=== PATIENT | female | born 1990 | race Caucasian/White ===

== ENCOUNTER 2020-11-17 20:36 | Emergency (ER) | payer OTHER, SELFPAY ==
[2020-11-17 21:00] VITALS: BP 132/75; PULSE 92; RESP 18; TEMP 36.8; O2SAT 96; BMI 45.0
[2020-11-17 22:34] LABS: IDNOW Serial# 08D9AD1C; Strep A Nucleic Acid Positive (Negative)
--- NOTE | 2020-11-17 23:17 | ED_ITS ---
HPI - General Adult General Chief complaint: General Medical Stated complaint: strept? Time Seen by Provider: 11/17/20 23:09 Source: patient Mode of arrival: ambulatory Limitations: no limitations History of Present Illness HPI narrative: patient is a 29-year-old female with no significant past medical history is here complaining of a sore throat. She states she went to her doctor today and was given a prescription for amoxicillin which she started taking but her throat is hurting. I explained she did test positive for strep and what she needs to feel better is to take her antibiotics. She denies any fever shortness of breath, trouble breathing or chest pain Related Data Allergies Allergy/AdvReac Type Severity Reaction Status Date / Time No Known Allergies Allergy Verified 11/17/20 20:59 Review of Systems Review of Systems: Yes all other systems are reviewed and are negative [facility] Past Medical History Medical History HTN (hypertension) Kidney stones Pre-diabetes Surgical History History of lithotripsy Social History Social History Advance Directives: No Advance Directives Information Provided: Yes Patient : No Physical Exam Vital Signs: Vital Signs: Last Vital Signs Temp 98.3 F 11/17/20 21:00 Pulse 92 11/17/20 21:00 Resp 18 11/17/20 21:00 BP 132/75 11/17/20 21:00 Pulse Ox 96 11/17/20 21:00 Body Mass Index 45.0 Const: General: cooperative, healthy appearing, comfortable, no acute distress and well developed Orientation/consciousness: patient oriented x3 Limitations: no limitations HENMT: Head: Yes normal to inspection Face and sinus: Yes normal facial exam Mouth: Normal oral and palatal mucosa present, lip normal, tongue normal, moist mucous membranes, no drooling and no muffled voice Teeth and gingiva: dentition normal and gingiva normal Throat: Yes tonsils normal ( erythematous and slightly enlarged but airway is patent), No peritonsillar mass, Yes posterior oropharynx abnormal ( Erythematous), No uvula laterally displaced, No uvular edema and No cobblestoning Eyes: General: appearance normal, both eyes and all related structures Neck: Neck: Yes normal visual inspection and Yes full ROM Resp: Effort & Inspection: normal respiratory effort and able to speak in complete sentences Cardio: Rate: regular rate Skin: General skin exam: no rashes or lesions noted Neuro: General: patient oriented x3 Extrem: General: Yes normal to inspection Medical Decision Making Lab Data Labs: Lab Results 11/17/20 Range/Units 22:20 S. pyogenes GrpA MISSY Positive A (Negative) Discharge Plan Discharge Clinical Impression: Strep pharyngitis Patient Disposition: Home, Self-Care Instructions: Strep Throat (ED) Additional Instructions: Please be sure to take the antibiotics her doctor gave you in full, as directed. also you can drink cold liquids to help manage the pain as well as take ibuprofen, I have given you a dose of ibuprofen in the emergency department tonight. If you have any shortness of breath or chest pain, please return to the emergency department. Please be sure to go to your follow-up appointment on December 05 regarding at your tonsil removal.
[2020-11-17] MEDS: Ibuprofen 600 MG TABLET PO (23:44)
[2020-11-17] MEDS: dexAMETHasone 6 MG TABLET PO (23:44)
== END 2020-11-17 23:52 | disposition home or self-care (01) ==
PROVIDERS: Emergency Provider Internal Medicine; PCP Internal Medicine
DX: J02.0 Streptococcal pharyngitis (principal)
CPT/HCPCS: 36415; 87651; 99283; 99284; J8540

== ENCOUNTER 2020-11-29 22:12 | Emergency (ER) | payer OTHER, SELFPAY ==
[2020-11-29 22:19] VITALS: BP 152/98; PULSE 84; RESP 18; TEMP 37.1; O2SAT 97; BMI 45.3
[2020-11-29 22:42] LABS: Glucose Urine UA NEG (NEG); Leukocyte Esterase Urine NEG (NEG); Nitrite Urine NEG (NEG); Specific Gravity - Urine >= 1.030 (1.005-1.025); Urine Blood TRACE (NEG); Urine Ketones NEG (NEG); Urine Protein TRACE MG/DL (NEG-TRACE)
[2020-11-29 22:46] LABS: Appearance Urine HAZY; Color Urine YELLOW
[2020-11-29 22:48] LABS: UPreg QC Valid YES; Urine Pregnancy NEGATIVE (NEGATIVE)
[2020-11-29 22:53] LABS: Bacteria Urine 2+ /LPF; Mucus Urine 2+ /LPF; Squamous Epithelial Cell Urine 2+ /LPF
--- NOTE | 2020-11-29 23:44 | ED_ITS ---
HPI - General Adult General Chief complaint: Dizziness Stated complaint: dizziness Time Seen by Provider: 11/29/20 23:43 Source: patient Mode of arrival: ambulatory Limitations: no limitations History of Present Illness HPI narrative: Patient having headache for last 3 days with history of similar headaches in the past with photosensitivity ++ nausea seen her PCP yesterday labs were normal and is prescribed Fioricet is not helping her no history of head injury no fever or chills Related Data Previous Rx's Medication Instructions Recorded ondansetron 4 mg PO Q6-8H PRN #7 tab 11/30/20 sumatriptan succinate [Imitrex] See Rx Instructions .ROUTE 11/30/20 .COMPLEX #10 tab Allergies Allergy/AdvReac Type Severity Reaction Status Date / Time No Known Allergies Allergy Verified 11/17/20 20:59 Review of Systems Review of Systems: Yes all other systems are reviewed and are negative [facility] Past Medical History Medical History HTN (hypertension) Kidney stones Pre-diabetes Surgical History History of lithotripsy Social History Social History Advance Directives: No Advance Directives Information Provided: No Patient : No Physical Exam Vital Signs: Vital Signs: Last Vital Signs Temp 98.7 F 11/29/20 22:19 Pulse 84 11/29/20 22:19 Resp 18 11/29/20 22:19 BP 152/98 H 11/29/20 22:19 Pulse Ox 97 11/29/20 22:19 Body Mass Index 45.3 Appearance: Alert. Oriented X3. No acute distress. Sensitive to light Eyes: PERRLA, No Nystagmus ENT: Pharynx normal. Oral Mucosa moist Neck: Normal inspection. Neck supple. CVS: Normal heart rate and rhythm. Pulses normal. Respiratory: No respiratory distress. Equal air entry bilateral, Abdomen: Soft and nontender. Bowel sounds are present, Skin: Skin warm and dry. Normal skin color. Normal skin turgor. Extremities: No lower extremity edema. No calf tenderness Neuro: Oriented X 3. No motor deficit. No sensory deficit.No cerebellar signs , cranial nerves II-XII intact Medical Decision Making MDM Narrative Medical decision making narrative: Patient feeling much better after Imitrex headache improved discharge patient home Lab Data Labs: Lab Results 11/29/20 11/29/20 Range/Units 22:30 22:30 Urine Color YELLOW Urine Appearance HAZY Urine pH 6.0 (5.0-8.0) Ur Specific [place] >= 1.030 H (1.005-1.025) Urine Protein TRACE (NEG-TRACE) MG/DL Urine Glucose (UA) NEG (NEG) MG/DL Urine Ketones NEG (NEG) MG/DL Urine Blood TRACE (NEG) Urine Nitrite NEG (NEG) Ur Leukocyte Esterase NEG (NEG) Urine RBC 1-4 (0) /HPF Urine WBC 1-4 (0-4) /HPF Ur Squamous Epith Cells 2+ /LPF Urine Bacteria 2+ /LPF Hyaline Casts 1-4 /LPF Urine Mucus 2+ /LPF Urine Test NEGATIVE (NEGATIVE) Discharge Plan Discharge Clinical Impression: Migraine Qualifiers: Migraine type: without aura Status migrainosus presence: without status migrainosus Intractability: not intractable Qualified Code(s): G43.009 - Migraine without aura, not intractable, without status migrainosus Patient Disposition: Home, Self-Care Instructions: Migraine Headache (ED) Additional Instructions: Take medication as prescribed follow with PCP if not better Take Imitrex 1 tablet at onset of headache may repeat in 2 hours maximum 2 tablets in 24 hours Follow with PCP if not better Prescriptions: New sumatriptan succinate [Imitrex] 50 mg tablet See Rx Instructions .ROUTE .COMPLEX Qty: 10 RF: 0 ondansetron 4 mg tablet,disintegrating 4 mg PO Q6-8H PRN (Reason: nausea and vomiting) Qty: 7 RF: 0
== END 2020-11-30 01:24 | disposition home or self-care (01) ==
PROVIDERS: Emergency Provider Internal Medicine
DX: G43.009 Migraine without aura, not intractable, without status migrainosus (principal); I10 Essential (primary) hypertension
CPT/HCPCS: 81001; 81025; 96372; 99283; 99284; J3030

== ENCOUNTER 2020-12-01 19:43 | Emergency (ER) | payer OTHER, SELFPAY ==
--- NOTE | 2020-12-01 | ECG_ITS ---
Test Reason : CHEST PAIN Blood Pressure : / mmHG Vent. Rate : 077 BPM Atrial Rate : 077 BPM P-R Int : 152 ms QRS Dur : 086 ms QT Int : 390 ms P-R-T Axes : 021 015 002 degrees QTc Int : 441 ms Normal sinus rhythm with sinus arrhythmia Normal ECG No previous ECGs available Referred By: Generic ED Physician Electronically Signed By:Alfred Cummins
--- NOTE | ~2020-12-01 | XR_ITS ---
EXAMINATION: XR CHEST CLINICAL INFORMATION: Chest pain COMPARISON: None TECHNIQUE: Frontal view of the chest was obtained. FINDINGS: No significant abnormality is noted involving the heart, lungs, mediastinum, bony thorax or soft tissues. Some mild atelectasis present in the right midlung. XR/XR chest 1V IMPRESSION: Unremarkable examination.
[2020-12-01 19:45] VITALS: BP 132/85; PULSE 90; RESP 18; TEMP 37.1; O2SAT 98; BMI 44.0
--- NOTE | 2020-12-01 20:44 | PC.NURSE ---
CALLED PATIENT NO RESPONSE FOR EKG.
--- NOTE | 2020-12-01 22:55 | ED.URI ---
HPI - URI/Sore Throat General Chief Complaint: Chest Pain Stated Complaint: CP Time Seen by Provider: 12/01/20 22:50 Source: patient Mode of arrival: ambulatory Limitations: no limitations History of Present Illness HPI Narrative: Patient complaining of sore throat for last few days had separate strep done ,which was positive on 11/17 for which she got antibiotics now comes here for sore throat and epigastric pain was seen at [facility] yesterday for same had labs done which were negative patient denies any fever or chills no cough no shortness of breath Related Data Previous Rx's Medication Instructions Recorded ondansetron 4 mg PO Q6-8H PRN #7 tab 11/30/20 sumatriptan succinate [Imitrex] See Rx Instructions .ROUTE 11/30/20 .COMPLEX #10 tab omeprazole 40 mg PO DAILY #30 cap 12/01/20 Allergies Allergy/AdvReac Type Severity Reaction Status Date / Time No Known Allergies Allergy Verified 12/01/20 19:45 Review of Systems Review of Systems: Yes all other systems are reviewed and are negative [facility] Past Medical History Medical History Asthma HTN (hypertension) Kidney stones Pre-diabetes Surgical History History of lithotripsy Social History Social History Advance Directives: No Advance Directives Information Provided: Yes Patient : No Physical Exam Vital Signs: Vital Signs: Last Vital Signs Temp 98.7 F 12/01/20 19:45 Pulse 90 12/01/20 19:45 Resp 18 12/01/20 19:45 BP 132/85 12/01/20 19:45 Pulse Ox 98 12/01/20 19:45 Body Mass Index 44.0 Appearance: Alert. Oriented X3. No acute distress. Eyes: PERRLA, ENT: Pharynx normal. Oral Mucosa moist Neck: Normal inspection. Neck supple. CVS: Normal heart rate and rhythm. Pulses normal. Respiratory: No respiratory distress. Equal air entry bilateral, no wheezing/rales/rhonchi Abdomen: Soft and nontender. Skin: Skin warm and dry. Normal skin color. Normal skin turgor. Extremities: No lower extremity edema. No calf tenderness Neuro: Oriented X 3. MDM - URI/Sore Throat Lab Data Attestation: I reviewed the patient's lab results. Labs: Lab Results 12/01/20 Range/Units 23:08 S. pyogenes GrpA MISSY Negative (Negative) Discharge Plan Discharge Clinical Impression: GERD (gastroesophageal reflux disease) Patient Disposition: Home, Self-Care Instructions: Gastroesophageal Reflux Disease (ED) Additional Instructions: Drink plenty of fluid take medication as prescribed avoid fried and spicy food follow with PCP if not better Prescriptions: New omeprazole 40 mg capsule,delayed release(DR/EC) 40 mg PO DAILY Qty: 30 RF: 0 No Action sumatriptan succinate [Imitrex] 50 mg tablet See Rx Instructions .ROUTE .COMPLEX Qty: 10 RF: 0 ondansetron 4 mg tablet,disintegrating 4 mg PO Q6-8H PRN (Reason: nausea and vomiting) Qty: 7 RF: 0 Interventions: ED Discharge Assessment Last Done: 12/01/20 23:40 Discharge Date/Time: 12/01/20 23:42
[2020-12-01 23:25] LABS: Strep A Nucleic Acid Negative (Negative)
[2020-12-01] MEDS: Omeprazole 40 MG CAPSULE.DR PO (23:38)
== END 2020-12-01 23:42 | disposition home or self-care (01) ==
PROVIDERS: Emergency Provider Internal Medicine
DX: K21.9 Gastro-esophageal reflux disease without esophagitis (principal); I10 Essential (primary) hypertension; Z79.899 Other long term (current) drug therapy
CPT/HCPCS: 36415; 71045; 87651; 93005; 99283

== ENCOUNTER 2021-02-20 13:37 | Emergency (ER) | payer OTHER, SELFPAY ==
[2021-02-20 13:39] VITALS: BP 152/85; PULSE 95; RESP 16; TEMP 36.4; O2SAT 98; BMI 40.6
--- NOTE | 2021-02-20 13:56 | ED.URI ---
HPI - URI/Sore Throat General Chief Complaint: Upper Respiratory Symptoms Stated Complaint: sinus pressure, abd pain Time Seen by Provider: 02/20/21 13:56 Source: patient Mode of arrival: ambulatory Limitations: no limitations History of Present Illness HPI Narrative: 30 y/o female presents to the ER with multiple complaints including sinus pain, headaches, sore throat with post nasal drip as well as intermittnet RUQ pains. She reports about 2 weeks ago she was started on amoxicillin for sinus infection and she had an anaphylactic reaction with facial and mouth swelling requiring IV benadrl and steroids at [facility]. She was never continued on another antibiotic. Her sinus pressure and pain continued to worsen. She has had pounding headaches. She also reports for the last 2-3 weeks she has been having intermittent RUQ pains after she eats certain foods. It is a stabbing pain that comes and does. No N/V/D. No fever or chills. She has no urinary symptoms, no SOB or chest pain. MD elicited complaint: sore throat, nasal congestion and sinus pain Onset (ago): week(s) (2) Consistency: progressively worsening Severity: moderate Description of mucous: yellow Able to tolerate fluids by mouth: Yes Exacerbating factors: nothing Relieving factors: nothing Associated symptoms: headache, nasal congestion, sore throat and abdominal pain Treatments prior to arrival: none Related Data Previous Rx's Medication Instructions Recorded ondansetron 4 mg disintegrating 4 mg PO Q6-8H PRN #7 tab 11/30/20 tablet sumatriptan succinate 50 mg tablet See Rx Instructions .ROUTE 11/30/20 (Imitrex) .COMPLEX #10 tab omeprazole 40 mg capsule,delayed 40 mg PO DAILY #30 cap 12/01/20 release doxycycline hyclate 100 mg tablet 100 mg PO BID #20 tab 02/20/21 fluticasone propionate 50 1 spray INTRANASAL BID #16 g 02/20/21 mcg/actuation nasal spray,suspension (Flonase Allergy Relief) Allergies Allergy/AdvReac Type Severity Reaction Status Date / Time No Known Allergies Allergy Verified 12/01/20 19:45 Review of Systems Review of Systems: Constitutional: No Fever, No Chills ENT/Mouth: + sore throat, No Rhinorrhea, No Swallowing Difficulty, + sinus pain Cardiovascular: No Chest Pain, No SOB Respiratory: No Cough, No Sputum, No Wheezing, No dyspnea Gastrointestinal: No Nausea, No Vomiting, No Diarrhea, + abdominal Pain Musculoskeletal: No joint pain, No Myalgias Skin: No Skin Lesions, No rash Neuro: No Weakness, No Numbness, No Dizziness, + Headache Psych: + Anxiety/Panic, No Depression Heme/Lymph: No Bruising, No Lymphadenopathy PMFSH Past Medical History Medical History Asthma HTN (hypertension) Kidney stones Pre-diabetes Surgical History History of lithotripsy Social History Social History Advance Directives: Yes Advance Directives Information Provided: Yes Advance Directives on File: No Physical Exam Vital Signs: Vital Signs: Last Vital Signs Temp 97.6 F 02/20/21 13:39 Pulse 95 02/20/21 13:39 Resp 16 02/20/21 13:39 BP 152/85 H 02/20/21 13:39 Pulse Ox 98 02/20/21 13:39 Body Mass Index 40.6 Appearance: Alert. Oriented X3. No acute distress. Eyes: Pupils equal, round and reactive to light. ENT: Pharynx normal. TMs obstructed bilaterally by cerumen impaction. clear nasal discharge with maxillary sinus tenderness, R>L. Neck: Normal inspection. Neck supple. CVS: Normal heart rate and rhythm. Pulses normal. Respiratory: No respiratory distress. Breath sounds normal. Abdomen: Soft with RUQ tenderness, no rebound or guarding. +BS x4 Skin: Skin warm and dry. Normal skin color. Normal skin turgor. No rashes. Extremities: No lower extremity edema. Neuro: Oriented X 3. No motor deficit. No sensory deficit. Course Course Course Narrative: 30 yo female presenting with sinus pressure pain, sore throat and intermittent RUQ pains - all of her symptoms have been going on for 2+ weeks. Will check basic labs. Needs cerumen irrigation. Reevaluation(s) Reevaluation #1: Lab workup is completely normal. She is likely experiencing biliary colic. LFTs are normal. She has no guarding or rebound on exam. Will refer to General Surgery for furhter evaluation. Will treat sinus infection with PO doxy given her PCN allergy. Stable for d/c home with outpatient follow up. MDM - URI/Sore Throat Lab Data Result diagrams: 02/20/21 14:05 02/20/21 14:05 Labs: Lab Results 02/20/21 02/20/21 02/20/21 Range/Units 14:05 14:05 14:05 WBC 4.0 L (4.8-10.8) X10*3/uL RBC 5.01 (4.20-5.50) X10*6/uL Hgb 14.5 (12.0-16.0) g/dl Hct 42.9 (37-47) % MCV 85.6 (80-98) fL MCH 28.9 (27.0-33.0) pg MCHC 33.8 (31.0-35.0) g/dl RDW 12.0 (11.0-16.0) % Plt Count 307 (160-400) X10*3/uL MPV 10.6 (9.4-12.3) fL Immature Gran % (Auto) 0.2 (0.0-0.4) % Neut % (Auto) 52.9 (45-73) % Lymph % (Auto) 35.8 (20-40) % [place] % (Auto) 9.2 (2-11) % Eos % (Auto) 1.7 (0-4) % Baso % (Auto) 0.2 (0-2) % Lymph # (Auto) 1.4 (1.2-4.9) X10*3/uL [place] # (Auto) 0.4 (0.1-1.2) X10*3/uL Eos # (Auto) 0.1 (0.0-0.4) X10*3/uL Baso # (Auto) 0.0 (0.0-0.2) X10*3/uL Abs Immat Gran (auto) 0.01 (0.00-0.03) X10*3/uL Absolute Neuts (auto) 2.1 (2.0-8.3) X10*3/uL Absolute Nucleated RBC 0.000 (0.0-0.012) X10*3/uL Nucleated RBC % (auto) 0.0 (0.0-0.2) /100WBC Sodium 137 (135-145) mmol/L Potassium 4.0 (3.3-5.1) mmol/L Chloride 105 (96-108) mmol/L Carbon Dioxide 23 (22-29) mmol/L Anion Gap 13 (12-20) BUN 11 (9-16) mg/dL Creatinine 0.63 (0.5-1.4) mg/dL Estim Creat Clear Calc 142.0 Estimated GFR > 60 Random Glucose 95 (60-115) mg/dL Calcium 10.1 (8.4-10.2) mg/dL Magnesium 1.8 (1.6-2.6) mg/dL Total Bilirubin 0.4 (0.0-1.0) mg/dL Direct Bilirubin 0.2 (0.0-0.5) mg/dL AST 15 (5-31) U/L ALT 11 (0-31) U/L Alkaline Phosphatase 91 (39-117) U/L Total Protein 7.8 (6.5-8.0) g/dL Albumin 4.5 (3.5-5.0) g/dL Urine Color YELLOW Urine Appearance HAZY Urine pH 6.0 (5.0-8.0) Ur Specific [place] 1.020 (1.005-1.025) Urine Protein TRACE (NEG-TRACE) MG/DL Urine Glucose (UA) NEG (NEG) MG/DL Urine Ketones NEG (NEG) MG/DL Urine Blood 3+ H (NEG) Urine Nitrite NEG (NEG) Ur Leukocyte Esterase NEG (NEG) Urine RBC 30-49 H (0) /HPF Urine WBC 0 (0-4) /HPF Ur Squamous Epith Cells 2+ /LPF Urine Bacteria NONE /LPF Urine Test (NEGATIVE) 02/20/21 Range/Units 14:05 WBC (4.8-10.8) X10*3/uL RBC (4.20-5.50) X10*6/uL Hgb (12.0-16.0) g/dl Hct (37-47) % MCV (80-98) fL MCH (27.0-33.0) pg MCHC (31.0-35.0) g/dl RDW (11.0-16.0) % Plt Count (160-400) X10*3/uL MPV (9.4-12.3) fL Immature Gran % (Auto) (0.0-0.4) % Neut % (Auto) (45-73) % Lymph % (Auto) (20-40) % [place] % (Auto) (2-11) % Eos % (Auto) (0-4) % Baso % (Auto) (0-2) % Lymph # (Auto) (1.2-4.9) X10*3/uL [place] # (Auto) (0.1-1.2) X10*3/uL Eos # (Auto) (0.0-0.4) X10*3/uL Baso # (Auto) (0.0-0.2) X10*3/uL Abs Immat Gran (auto) (0.00-0.03) X10*3/uL Absolute Neuts (auto) (2.0-8.3) X10*3/uL Absolute Nucleated RBC (0.0-0.012) X10*3/uL Nucleated RBC % (auto) (0.0-0.2) /100WBC Sodium (135-145) mmol/L Potassium (3.3-5.1) mmol/L Chloride (96-108) mmol/L Carbon Dioxide (22-29) mmol/L Anion Gap (12-20) BUN (9-16) mg/dL Creatinine (0.5-1.4) mg/dL Estim Creat Clear Calc Estimated GFR Random Glucose (60-115) mg/dL Calcium (8.4-10.2) mg/dL Magnesium (1.6-2.6) mg/dL Total Bilirubin (0.0-1.0) mg/dL Direct Bilirubin (0.0-0.5) mg/dL AST (5-31) U/L ALT (0-31) U/L Alkaline Phosphatase (39-117) U/L Total Protein (6.5-8.0) g/dL Albumin (3.5-5.0) g/dL Urine Color Urine Appearance Urine pH (5.0-8.0) Ur Specific [place] (1.005-1.025) Urine Protein (NEG-TRACE) MG/DL Urine Glucose (UA) (NEG) MG/DL Urine Ketones (NEG) MG/DL Urine Blood (NEG) Urine Nitrite (NEG) Ur Leukocyte Esterase (NEG) Urine RBC (0) /HPF Urine WBC (0-4) /HPF Ur Squamous Epith Cells /LPF Urine Bacteria /LPF Urine Test NEGATIVE (NEGATIVE) Procedures Ear Wax Removal Both Ears: Cerumenolytic Used: other (warm water) Results: Re-examined: cerumen removed completely TM Examination: TM(s) intact, normal appearance Ear Canal Exam: atraumatic Patient Tolerated Procedure: well Complications: no problems Technique: ear canal irrigated Discharge Plan Discharge Clinical Impression: Biliary colic Sinusitis Qualifiers: Sinusitis location: maxillary Chronicity: acute Recurrence: non-recurrent Qualified Code(s): J01.00 - Acute maxillary sinusitis, unspecified Patient Disposition: Home, Self-Care Instructions: Biliary Colic (ED), Sinusitis (ED) Additional Instructions: Your lab workup today was normal. Take the prescribed medications as directed for your sinus infection. Recommend following up with General Surgery for further evaluation of your abdominal pains. Avoid greasy and fatty foods as well as dairy as this can make the pain worse. If you develop new or worsening symptoms call 911 or come back to the ER for further evaluation. Prescriptions: New doxycycline hyclate 100 mg tablet 100 mg PO BID Qty: 20 RF: 0 fluticasone propionate [Flonase Allergy Relief] 50 mcg/actuation spray,suspension 1 spray intranasal BID Qty: 16 RF: 0 No Action sumatriptan succinate [Imitrex] 50 mg tablet See Rx Instructions .ROUTE .COMPLEX Qty: 10 RF: 0 ondansetron 4 mg tablet,disintegrating 4 mg PO Q6-8H PRN (Reason: nausea and vomiting) Qty: 7 RF: 0 omeprazole 40 mg capsule,delayed release(DR/EC) 40 mg PO DAILY Qty: 30 RF: 0 Referrals: Tonny Koehler MD [Physician] - 2 days (biliary colic) Stand Alone Forms: Work/School Release
[2021-02-20 14:17] LABS: MANUAL DIFF FLAG NO
[2021-02-20 14:22] LABS: Appearance Urine HAZY; Color Urine YELLOW; Glucose Urine UA NEG (NEG); Leukocyte Esterase Urine NEG (NEG); Nitrite Urine NEG (NEG); UACC Culture Trigger NO; Urine Blood 3+ (NEG); Urine Ketones NEG (NEG); Urine Protein TRACE MG/DL (NEG-TRACE)
[2021-02-20 14:23] LABS: Basophils Percent Auto 0.2 % (0-2); Eosinophils Absolute Auto 0.1 X10*3/uL (0.0-0.4); Eosinophils Percent Auto 1.7 % (0-4); Hematocrit 42.9 % (37-47); Hemoglobin 14.5 g/dl (12.0-16.0); Imm Gran Abs Auto 0.01 X10*3/uL (0.00-0.03); Imm Gran Pct Auto 0.2 % (0.0-0.4); Lymphocytes Absolute Auto 1.4 X10*3/uL (1.2-4.9); Lymphocytes Percent Auto 35.8 % (20-40); Mean Corpuscular HGB Conc 33.8 g/dl (31.0-35.0); Mean Corpuscular Hemoglobin 28.9 pg (27.0-33.0); Mean Corpuscular Volume 85.6 fL (80-98); Mean Platelet Volume 10.6 fL (9.4-12.3); Monocytes Absolute Auto 0.4 X10*3/uL (0.1-1.2); Monocytes Percent Auto 9.2 % (2-11); Neutrophils Absolute Auto 2.1 X10*3/uL (2.0-8.3); Neutrophils Percent Auto 52.9 % (45-73); Platelet Count 307 X10*3/uL (160-400); Red Blood Count 5.01 X10*6/uL (4.20-5.50)
[2021-02-20 14:25] LABS: UPreg QC Valid YES; Urine Pregnancy NEGATIVE (NEGATIVE)
[2021-02-20 14:32] LABS: RBC Urine 30-49 /HPF (0); Squamous Epithelial Cell Urine 2+ /LPF; WBC Urine 0 /HPF (0-4)
[2021-02-20 14:42] LABS: Alanine Aminotransferase 11 U/L (0-31); Albumin Level 4.5 g/dL (3.5-5.0); Alkaline Phosphatase 91 U/L (39-117); Anion Gap 13 (12-20); Aspartate Amino Transferase 15 U/L (5-31); Bilirubin Direct 0.2 mg/dL (0.0-0.5); Bilirubin Total 0.4 mg/dL (0.0-1.0); Blood Urea Nitrogen 11 mg/dL (9-16); Calcium 10.1 mg/dL (8.4-10.2); Carbon Dioxide 23 mmol/L (22-29); Chloride 105 mmol/L (96-108); Estimated Glomerular Filt Rate > 60; Glucose Random 95 mg/dL (60-115); Magnesium 1.8 mg/dL (1.6-2.6); Sodium 137 mmol/L (135-145); Total Protein 7.8 g/dL (6.5-8.0)
== END 2021-02-20 15:00 | disposition home or self-care (01) ==
PROVIDERS: Physician Assistant; Emergency Provider Internal Medicine
DX: K80.50 Calculus of bile duct without cholangitis or cholecystitis without obstruction (principal); J01.00 Acute maxillary sinusitis, unspecified; H61.23 Impacted cerumen, bilateral; R10.11 Right upper quadrant pain; R51.9 Headache, unspecified; Z79.899 Other long term (current) drug therapy
CPT/HCPCS: 36415; 69209; 80048; 80076; 81001; 81025; 83735; 85025; 99283; 99284